=== PATIENT | female | born 1985 | race Two or more races ===

== ENCOUNTER 2023-06-25 02:42 | Emergency (ER) | payer MEDICAID, OTHER ==
[~2023-06-25] VITALS: Ht 165.1 cm; Wt 75.0 kg
[2023-06-25 03:09] VITALS: BP 103/58; PULSE 94; RESP 18; TEMP 98.8; O2SAT 100
[2023-06-25 05:47] LABS: BASOPHILS % 0.6 % (0.0-2.0); EOSINOPHILS % 1.2 % (0.0-5.0); HEMATOCRIT. 24.2 % (36.0-48.0); LYMPHOCYTES % 20.2 % (20.0-50.0); MEAN CORPUSCULAR HEMOGLOBIN 28.2 pg (28.0-32.0); MEAN CORPUSCULAR HGB CONC 32.8 g/dL (31.0-37.0); MEAN CORPUSCULAR VOLUME 85.8 fL (81.0-99.0); MEAN PLATELET VOLUME 6.6 fl (7.4-10.4); MONOCYTES % 10.9 % (2.0-8.0); NEUTROPHILS % 67.1 % (40.0-76.0); PLATELET 339 x1000/uL (130-400); RED BLOOD CELL COUNT 2.82 mill/uL (4.2-5.4); RED CELL DISTRIBUTION WIDTH 15.3 % (11.6-14.6); WHITE BLOOD COUNT 9.1 x1000/uL (4.5-11.0)
[2023-06-25 05:54] LABS: CHLORIDE 107 mEq/L (98-107); INDEX HEMOLYSI 1 (1-3); INDEX ICTERIC 1 (1-4); INDEX LIPEMIC 1 (1-3); POTASSIUM 3.7 mEq/L (3.5-5.1); SODIUM 138 mEq/L (136-145)
[2023-06-25 06:03] LABS: ALANINE AMINOTRANSFERASE 96 IU/L (13-61); ALBUMIN 2.3 g/dL (3.4-5.0); ASPARTATE AMINOTRANSFERASE 54 IU/L (15-37); BILIRUBIN TOTAL 0.8 mg/dL (0.1-1.0); CALCIUM 8.6 mg/dL (8.5-10.1); CARBON DIOXIDE 30 mEq/L (21-32); CREATININE 0.7 mg/dL (0.6-1.3); GLUCOSE 98 mg/dL (70-105); PROTEIN TOTAL 7.1 g/dL (6.0-8.3); UREA NITROGEN BLOOD 15 mg/dL (7-21)
[2023-06-25 07:10] LABS: CLARITY URINE CLEAR (CLEAR); COLOR URINE DARK YELLOW (YELLOW); GLUCOSE URINE NEGATIVE (NEGATIVE); KETONES URINE NEGATIVE (NEGATIVE); LEUKOCYTE ESTERASE URINE 1+ (NEGATIVE); NITRITE URINE NEGATIVE (NEGATIVE); OCCULT BLOOD URINE NEGATIVE (NEGATIVE); PH URINE 5.5 (4.5-8.0); PROTEIN URINE NEGATIVE (NEGATIVE); SPECIFIC GRAVITY URINE 1.027 (1.005-1.030)
[2023-06-25 09:11] LABS: SQUAMOUS EPITHELIAL CELL URINE 1+ /lpf (RARE/1+)
[2023-06-25 09:12] LABS: RBC URINE 0-2 /hpf (0-2)
[2023-06-25 09:13] LABS: BACTERIA URINE TRACE; CALCIUM OXALATE CRYSTALS URINE 1+ /lpf
[2023-06-25 09:14] LABS: WBC URINE 0-2 /hpf (0-2)
== END 2023-06-25 07:40 | disposition left against medical advice (07) ==
LOC: ER 02:42
DX: Z53.21 Procedure and treatment not carried out due to patient leaving prior to being seen by health care provider (principal)
CPT/HCPCS: 36415; 80053; 81003; 81025; 85025; 99281

== ENCOUNTER 2024-12-04 11:06 | Emergency (ER) | payer OTHER ==
[~2024-12-04] VITALS: Ht 165.1 cm; Wt 80.0 kg
[2024-12-04 11:08] VITALS: BP 144/68; PULSE 82; RESP 20; TEMP 36.7; O2SAT 99
[2024-12-04] MEDS ORDERED: VALACYCLOVIR HCL 500MG TABLET PO STA (12:05)
[2024-12-04] MEDS ORDERED: P20 PO (12:33)
[2024-12-04] MEDS ORDERED: VALA100044 PO (12:33)
== END 2024-12-04 13:00 | disposition left against medical advice (07) ==
LOC: ER 11:06
DX: R42 Dizziness and giddiness (principal); Z53.21 Procedure and treatment not carried out due to patient leaving prior to being seen by health care provider